=== PATIENT | male | born 1970 | race Caucasian/White ===

== ENCOUNTER 2019-01-22 07:51 | Day surgery (SDC) | payer OTHER ==
[~2019-01-22] VITALS: Ht 172.7 cm; Wt 84.0 kg
[~2019-01-22 07:51] MED LIST: ACETAMINOPHEN 500 MG TABLET PO PRN; BUPIVACAINE-EPI 0.25%-1:200000 MPF 30 ML VIAL. INJ ONE; HYDROmorphone 2 MG/ML VIAL IV PRN; IOHEXOL 300 MG/ML 50 ML VIAL. ONE; IV RINGERS,LACTATED 1000ML 1,000 ML IV SCH; LIDOCAINE 1% PF 2 ML VIAL. ID PRN; MORPHINE SULFATE 2 MG/ML VIAL. IV PRN; ONDANSETRON PF 4 MG/2 ML VIAL. IV PRN; PROCHLORPERAZINE 10 MG/2 ML VIAL. IV PRN; SURGICEL HEMOSTAT 4X8 EACH. ONE; fentaNYL PF VIAL 100 MCG/2 ML VIAL IV PRN
[2019-01-22] MEDS ORDERED: FLUT1DIS3 IH (08:32)
[2019-01-22] MEDS ORDERED: MELA5TAB11 SL (08:32)
[2019-01-22] MEDS ORDERED: ALBU2.5V8 INH (08:32)
[2019-01-22] MEDS ORDERED: IBUP-1027 PO (08:32)
[2019-01-22] MEDS ORDERED: PROPOFOL 20 ML IV ONE (08:42)
[2019-01-22] MEDS ORDERED: fentaNYL PF VIAL 100 MCG/2 ML VIAL ONE ×2 (08:42→09:51)
[2019-01-22] MEDS ORDERED: ROCURONIUM 50 MG/5 ML VIAL. ONE (08:42)
[2019-01-22] MEDS ORDERED: GLYCOPYRROLATE 1 MG/5 ML VIAL. ONE (08:42)
[2019-01-22] MEDS ORDERED: SEVOFLURANE 61 TO 120 MINUTES. IH ONE (08:42)
[2019-01-22] MEDS ORDERED: NEOSTIGMINE METHYLSULFATE 5 MG/5 ML SYRINGE. ONE (08:42)
[2019-01-22] MEDS ORDERED: LIDOCAINE 2% PF 5 ML VIAL. ONE (08:42)
[2019-01-22] MEDS ORDERED: DEXAMETHASONE SOD PHOS 4 MG/ML VIAL ONE (08:42)
[2019-01-22] MEDS ORDERED: MIDAZOLAM HCL/PF 2 MG/2 ML VIAL. ONE (08:42)
[2019-01-22] MEDS ORDERED: KETOROLAC 30 MG/ML VIAL. ONE (08:43)
[2019-01-22] MEDS ORDERED: ONDANSETRON PF 4 MG/2 ML VIAL. ONE (08:43)
[2019-01-22] MEDS ORDERED: ESMOLOL 100 MG/10 ML VIAL. IVP ONE (09:51)
[2019-01-22] MEDS ORDERED: PHENYLEPHRINE in 0.9% NACL PF 1 MG/10 ML SYRINGE. IV ONE (09:58)
--- NOTE | 2019-01-22 10:13 | PDOC4 ---
Operative Note Operative Note Date: 01/22/2019 Preoperative diagnosis: Chronic cholecystitis Postoperative diagnosis: Same Procedure: Laparoscopic cholecystectomy Surgeon: Hussain Specimen: Gallbladder Dictation: Patient is 48-year-old male had right upper quadrant abdominal pain ultrasound showing gallstones procedure of laparoscopic cholecystectomy was explained to the patient detail risk benefits were also discussed including bleeding infection injury to intra-abdominal contents possibly necessitating further or open operations alternatives to this procedure also discussed with patient who seemed to understand and gave both verbal and written consent to have the procedure performed. Patient was taken to the operating room placed in supine position general anesthesia was initiated once patient was sleep and intubated his abdomen was prepped and draped usual sterile fashion using ChloraPrep and area just below the umbilicus was injected with quarter percent Marcaine with epinephrine incision was made with 11 blade scalpel and a Veress needle was placed within the abdomen creating pneumoperitoneum once this was complete 11 mm port was placed and a 5 mm camera was placed within the abdomen which was inspected no other abdomen maladies were noted. A 5 mill meter port was placed in the epigastrium a 5 mill meter port was placed in the right mid abdomen and a 5 mm port was placed in the right lateral abdomen the dome of the gallbladder is grasped retracted cephalad the infundibulum of the gallbladder is grasped retracted laterally exposing the triangle. The adherent tissues the triangle were taken down with blunt dissection exposing the cystic duct and cystic artery both were doubly clipped and transected the gallbladder was taken off the liver with hook electrocautery placed in Endo Catch bag and removed from the umbilicus right upper quadrant was irrigated and suctioned dry hemostasis deemed to be appropriate and the pneumoperitoneum was reduced all ports removed fascial defect at the umbilicus was closed with [id number] 0 Vicryl suture and the skin was approximated all port sites with for septic and a Monocryl Mastisol Steri-Strips and island dressings were applied. Patient was awakened and bated operating room taken to recovery in stable condition all sponge instrument needle counts listed as correct estimated blood loss 5 mL NANY ELIZABETH MD Jan 22, 2019 10:13
--- NOTE | 2019-01-22 10:14 | DISCH ---
DISCHARGE INSTRUCTIONS Condition on Discharge Condition on Discharge: Stable Activity After Discharge Activity Instructions for Disc: Avoid exertion Other activity instructions: no lifting more than 20 pounds for 2 weeks Diet after Discharge Diet after Discharge: Low Fat Wound Incision Care Other wound/incision instructi: shower in 24 hours Contacting the DREssie after DC Call your doctor for: If your condition worsens Follow-Up Follow up with: nettie Elizabeth in 2 weeks NANY ELIZABETH MD Jan 22, 2019 10:14
[2019-01-22] MEDS ORDERED: OXYC1TAB15 PO (10:34)
[2019-01-22] MEDS ORDERED: oxyCODONE/APAP 5/325 1 TAB TABLET PO ONE ×2 (11:00)
[2019-01-22 12:00] VITALS: BP 124/75
--- NOTE | 2019-01-26 19:06 | PATHOLOGY ---
[facility] Accession Number: [id number] . 01 Material submitted: . gallbladder - GALLBLADDER . 01 Clinical history: . Chronic cholecystitis with calculus . 02 Diagnosis: Gallbladder, laparoscopic cholecystectomy: - Cholelithiasis. - Cholesterolosis. - Chronic cholecystitis with increased eosinophils. - Focal lipogranulomata of gallbladder neck lymph node. (JPM:senior support engineer; 01/26/2019) MBR 01/26/2019 1612 Local . 02 Comment: There is no evidence of malignancy. (JPM:senior support engineer; 01/26/2019) . 02 Electronically signed: . Shashi Cuadra MD, Pathologist NPI- [id number] . 01 Gross description: . The specimen is received in formalin labeled "Delgado, Toño, gallbladder" and consists of an intact green hutchins smooth shiny gallbladder measuring 7.3 x 2.3 x 1.8 cm. The margin is inked black. Opening reveals a lumen filled with viscous green bile and a single circular green-yellow calculus measuring 0.6 x 0.6 cm. The mucosa is green with extensive yellow highlights and an average wall thickness of 0.1 cm. Adjacent the gallbladder neck is a lymph node measuring 0.7 x 0.4 cm No masses are identified. Interactive Graphic Designer sections are submitted in A1. (SDY; 01/25/2019) SYU/SYU 01/25/2019 1056 Local . 02 Pathologist provided ICD-10: K80.10, K82.4 . 02 CPT . 015207 Specimen Comment: A courtesy copy of this report has been sent to [phone] Specimen Comment: Report sent to Performed at: [address], [place], [place] [id number] MD Brandt Patel MD Phone: [phone] Performed at: [address] [id number] MD Shashi Cuadar MD Phone: [phone]
== END 2019-01-22 12:13 | disposition home or self-care (01) ==
LOC: SURG 07:51
PROVIDERS: ATTEND Surgery
DX: K80.10 Calculus of gallbladder with chronic cholecystitis without obstruction (principal); J45.909 Unspecified asthma, uncomplicated; Z87.891 Personal history of nicotine dependence; Z98.42 Cataract extraction status, left eye; Z98.41 Cataract extraction status, right eye; Z96.1 Presence of intraocular lens
CPT/HCPCS: 47562; 88304; A7015; J1100; J1885; J2001; J2250; J2370; J2405; J2704; J2710; J3010; J3490; J7030; J7120; Q9967

== ENCOUNTER → 2019-02-01 | Outpatient (CLI) | payer OTHER ==
[2019-01-22 12:00] VITALS: BP 124/75
[~2019-02-01] MED LIST changes: -ACETAMINOPHEN 500 MG TABLET PO PRN; +ALBU2.5V8 INH; -BUPIVACAINE-EPI 0.25%-1:200000 MPF 30 ML VIAL. INJ ONE; +FLUT1DIS3 IH; -HYDROmorphone 2 MG/ML VIAL IV PRN; +IBUP-1027 PO; -IOHEXOL 300 MG/ML 50 ML VIAL. ONE; -IV RINGERS,LACTATED 1000ML 1,000 ML IV SCH; -LIDOCAINE 1% PF 2 ML VIAL. ID PRN; +MELA5TAB11 SL; -MORPHINE SULFATE 2 MG/ML VIAL. IV PRN; -ONDANSETRON PF 4 MG/2 ML VIAL. IV PRN; +OXYC1TAB15 PO; -PROCHLORPERAZINE 10 MG/2 ML VIAL. IV PRN; -SURGICEL HEMOSTAT 4X8 EACH. ONE; -fentaNYL PF VIAL 100 MCG/2 ML VIAL IV PRN
--- NOTE | 2019-02-01 14:27 | RAD ---
EXAM: Chest CT without intravenous contrast. HISTORY: 10 pack-year smoking history. Cough. TECHNIQUE: Computed tomographic images of the chest were obtained without contrast according to a low-dose cancer screening call. Multiplanar reformatting was performed.. *One or more of the following individualized dose reduction techniques were utilized for this examination: 1. Automated exposure control. 2. Adjustment of the mA and/or kV according to patient size. 3. Use of iterative reconstruction technique. COMPARISON: Abdomen and pelvis CT dated 01/08/2019. FINDINGS: There is a 3 mm solid nodule within the right upper lobe. There is a 3 mm groundglass nodule within the right upper lobe. There is a calcified granuloma within the left upper lobe. There is bilateral bronchial wall thickening suggesting the sequela of bronchitis. There is no consolidation, pleural effusion or pneumothorax. There is lingular and right middle lobe atelectasis or scarring. The heart is normal in size. The aorta is normal in caliber. No pathologically enlarged lymph node is seen. There is a 7 mm cyst within the right hepatic lobe, difficult to characterize in the absence of contrast. The gallbladder is surgically absent. There is stranding within the gallbladder fossa. There is no acute finding involving the upper abdomen. There is no suspicious osseous lesion. There is an incidental sternal foramen. IMPRESSION: 1. Mild bronchial wall thickening due to suspected bronchitis. No consolidated infiltrate is seen. 2. 3 mm solid and groundglass nodules within the right upper lobe. Lung RADS Category 2: Continued screening in 12 months is recommended. 3. Small hepatic cyst. 4. Stranding within the gallbladder fossa likely consistent with a relatively recent cholecystectomy. Electronically signed by: Kandy Thapa MD (02/01/2019 2:24 PM) [place] [id number]
== END | disposition home or self-care (01) ==
LOC: CT 13:43
PROVIDERS: ATTEND Internal Medicine Pulmonary Disease
DX: Z12.2 Encounter for screening for malignant neoplasm of respiratory organs (principal); J92.9 Pleural plaque without asbestos; R91.8 Other nonspecific abnormal finding of lung field; K76.89 Other specified diseases of liver; Z87.891 Personal history of nicotine dependence; Z90.49 Acquired absence of other specified parts of digestive tract
CPT/HCPCS: G0297